=== PATIENT | male | born 1960 | race Caucasian/White ===

== ENCOUNTER 2017-04-21 16:36 | Inpatient (IN) | payer MEDICAID ==
[~2017-04-21] VITALS: Ht 170.2 cm; Wt 103.0 kg
[~2017-04-21 16:36] MED LIST: FOLI-49 PO; Lactulose PO; RIFA200T3 PO
[2017-04-21] MEDS ORDERED: ONDANSETRON 4 MG INJ IV STA (17:12)
[2017-04-21] MEDS ORDERED: morphine 4 MG/ML VIAL IV STA (17:12)
[2017-04-21 17:44] LABS: BASOPHILS % 0.3 % (0.0-2.0); EOSINOPHILS # 0.1 10^3/ul (0.0-0.5); EOSINOPHILS % 1.2 % (0.0-7.0); HEMATOCRIT 29.4 % (42.0-52.0); HEMOGLOBIN 9.4 g/dl (14.0-18.0); LYMPHOCYTES # 1.2 10^3/ul (0.8-2.9); LYMPHOCYTES % 9.8 % (15.0-51.0); MEAN CORPUSCULAR HEMOGLOBIN 35.7 pg (29.0-33.0); MEAN CORPUSCULAR VOLUME 111.8 fl (82.0-101.0); MEAN PLATELET VOLUME 10.3 fl (7.4-10.4); MONOCYTE # 1.1 10^3/ul (0.3-0.9); MONOCYTES % 9.1 % (0.0-11.0); NEUTROPHIL # 9.4 10^3/ul (1.6-7.5); NEUTROPHILS % 79.2 % (39.0-77.0); PLATELET COUNT 213 10^3/UL (140-415); RED BLOOD COUNT 2.63 10^6/ul (4.70-6.10); RED CELL DISTRIBUTION WIDTH 14.8 % (11.5-14.5); WHITE BLOOD COUNT 11.8 10^3/ul (4.8-10.8)
[2017-04-21 17:45] LABS: ADD SCAN DIFF NO
[2017-04-21 17:59] LABS: INR 1.27; PARTIAL THROMBOPLASTIN TIME 34.7 Sec (25.0-35.0); PT RATIO 1.3
[2017-04-21] MEDS ORDERED: ACETAMINOPHEN 325 MG TAB PO PRN ×2 (18:00→20:30)
[2017-04-21] MEDS ORDERED: ONDANSETRON 4 MG INJ IV PRN ×3 (18:00→20:30)
[2017-04-21 18:03] LABS: ALBUMIN 2.7 g/dl (3.3-4.9); ALBUMIN/GLOBULIN RATIO 0.65; CALCIUM 8.3 mg/dl (8.4-10.2); CREATININE 0.62 mg/dl (0.61-1.24); POTASSIUM 3.7 mmol/L (3.5-5.1); TOTAL PROTEIN 6.8 g/dl (6.1-8.1)
--- NOTE | 2017-04-21 18:41 | ERA ---
ER Documentation Chief Complaint Date/Time DATE: 04/21/17 TIME: 18:38 Chief Complaint abdominal pain and distention HPI Patient is a 56-year-old male with no medical problems who presents with abdominal pain and swelling. The patient has had swelling over the past 3 weeks. He said that he has never had a paracentesis before. He denies fevers. The patient said that he tried Tylenol and "takes it every time I have pain". He says that he is taking Tylenol 2 times per day but the says it is much more than this. He was drinking a half a bottle of vodka daily until he stopped drinking 3 months ago. Upon review of old medical records the patient one previous visit to the ER in 2016. His primary doctor is Dr. Martin. ROS All systems reviewed and are negative except as per history of present illness. Medications Home Meds Discontinued Scripts Folic Acid* (Folic Acid*) 1 Mg Tab, 1 MG PO DAILY for 7 Days, TAB Prov:RADYOVANI EASTMANETLANA 03/01/16 Rifaximin* (Xifaxan*) 200 Mg Tab, 200 MG PO BID for 30 Days, TAB Prov:RADYOVANI EASTMANETLANA 03/01/16 [Lactulose] 20 GM/30 ML SOLN No Conflict Check, 30 GM PO DAILY Prov:RADCHENKOYOVANIRASTA 03/01/16 Allergies Allergies: Coded Allergies: No Known Allergy (Unverified , 04/21/17) PMhx/Soc History of Surgery: No Anesthesia Reaction: No Hx Neurological Disorder: No Hx Respiratory Disorders: No Hx Cardiac Disorders: No Hx Psychiatric Problems: No Hx Miscellaneous Medical Probl: Yes (JAUNDICE 1-YEAR AGO) Hx Alcohol Use: Yes (QUIT 3-MONTHS AGO) Hx Substance Use: No Hx Tobacco Use: No Smoking Status: Never smoker FmHx Family History: diabetes Physical Exam Vitals Vital Signs Date Time Temp Pulse Resp B/P Pulse Ox O2 Delivery O2 Flow Rate FiO2 04/21/17 16:39 99.9 112 28 124/80 95 Physical Exam Const: Moderate distress secondary to pain Head: Atraumatic Eyes: Normal Conjunctiva ENT: Normal External Ears, Nose and Mouth. Neck: Full range of motion..~ No meningismus. Resp: Clear to auscultation bilaterally Cardio: Regular rate and rhythm, no murmurs Abd: Diffuse tenderness to palpation with distended abdomen and positive fluid wave Skin: No petechiae or rashes Back: No midline or flank tenderness Ext: No cyanosis, or edema Neur: Awake and alert Psych: Normal Mood and Affect Result Diagram: 04/21/17 1725 04/21/17 1725 Results 24 hrs Laboratory Tests Test 04/21/17 17:25 White Blood Count 11.810^3/ul Red Blood Count 2.6310^6/ul Hemoglobin 9.4g/dl Hematocrit 29.4% Mean Corpuscular Volume 111.8fl Mean Corpuscular Hemoglobin 35.7pg Mean Corpuscular Hemoglobin Concent 32.0g/dl Red Cell Distribution Width 14.8% Platelet Count 70624^3/UL Mean Platelet Volume 10.3fl Neutrophils % 79.2% Lymphocytes % 9.8% Monocytes % 9.1% Eosinophils % 1.2% Basophils % 0.3% Nucleated Red Blood Cells % 0.0/100WBC Neutrophils # 9.410^3/ul Lymphocytes # 1.210^3/ul Monocytes # 1.110^3/ul Eosinophils # 0.110^3/ul Basophils # 0.010^3/ul Nucleated Red Blood Cells # 0.010^3/ul Prothrombin Time 16.0Sec Prothrombin Time Ratio 1.3 INR International Normalized Ratio 1.27 Activated Partial Thromboplast Time 34.7Sec Sodium Level 137mmol/L Potassium Level 3.7mmol/L Chloride Level 101mmol/L Carbon Dioxide Level 23mmol/L Anion Gap 17 Blood Urea Nitrogen 8mg/dl Creatinine 0.62mg/dl Glucose Level 110mg/dl Calcium Level 8.3mg/dl Total Bilirubin 1.0mg/dl Direct Bilirubin 0.00mg/dl Indirect Bilirubin 1.0mg/dl Aspartate Amino Transf (AST/SGOT) 126IU/L Alanine Aminotransferase (ALT/SGPT) 40IU/L Alkaline Phosphatase 254IU/L Ammonia 15umol/l Total Protein 6.8g/dl Albumin 2.7g/dl Globulin 4.10g/dl Albumin/Globulin Ratio 0.65 Lipase 77U/L Current Medications Medications (Trade) Dose Ordered Sig/Siddhartha Route PRN Reason Start Time Stop Time Status Last Admin Dose Admin Morphine Sulfate (morphine) 4 mg ONCE STAT IV 04/21/17 17:12 04/21/17 17:15 DC Ondansetron HCl (Zofran Inj) 4 mg ONCE STAT IV 04/21/17 17:12 04/21/17 17:15 DC Ondansetron HCl (Zofran Inj) 4 mg BRIDGE ORDER PRN IV NAUSEA AND/OR VOMITING 04/21/17 18:00 04/22/17 17:59 Acetaminophen (Tylenol Tab) 650 mg ER BRIDGE PRN PO MILD PAIN/FEVER 04/21/17 18:00 04/22/17 17:59 Procedures/MDM Ultrasound-guided paracentesis to be done by radiology. CT scan of the abdomen pelvis pending at this time. Patient is a 56-year-old male presents with what appears to be new onset ascites. I believe he likely has new onset cirrhosis as well. The patient will have an ultrasound-guided paracentesis and studies will be sent. The patient was found to have anemia. I have also ordered a Tylenol level which is pending at this time as the patient seems to be taking a significant amount of Tylenol per the . However his cirrhosis most likely is from alcohol abuse. The patient will be admitted to the care of Dr. Saldivar as Dr. Saldivar admitted this patient one year ago. At this point I doubt spontaneous bacterial peritonitis. Departure Diagnosis: Primary Impression: Ascites Qualified Code: R18.8 - Other ascites Additional Impression: Abdominal pain Qualified Code: R10.84 - Generalized abdominal pain Condition: KHUSHBOO Bettencourt MD Apr 21, 2017 18:41
[2017-04-21] MEDS ORDERED: LIDOCAINE 1% (MPF) 5 ML VIAL ONE (19:06)
--- NOTE | 2017-04-21 19:30 | RADRPT ---
PROCEDURE: Ultrasound-guided paracentesis CLINICAL INDICATION: Ascites TECHNIQUE: After obtaining informed consent, the pelvis was scanned using a high resolution transd ucer. An area of fluid was marked for paracentesis. 1% lidocaine was used for subcutaneous anesthesia. A 5-Grenadian 7 cm catheter was used to remove 6.8 liters of clear yellow fluid from the abdomen. The patient tolerated the procedure well. COMPARISON: February 28, 2016 FINDINGS: Successful right lower quadrant ultrasound-guided paracentesis. A total of 6.8 liters of clear yell ow fluid was removed. IMPRESSION: Successful right lower quadrant ultrasound-guided paracentesis. 6.8 liters of clear yellow fluid wa s removed, and sent to the lab. RPTAT: EE .Diana Hickman MD, Date Time Electronically viewed and signed by .Diana Hickman MD, on 04/21/2017 19:30 .F/
[2017-04-21 19:32] LABS: ACETAMINOPHEN < 10.0 ug/ml (10.0-30.0)
[2017-04-21 19:40] VITALS: TEMP 98.1
[2017-04-21 19:52] LABS: ETHANOL < 10.0 mg/dl
[2017-04-21 20:04] VITALS: Ht 170.2 cm; Wt 103.0 kg
[2017-04-21] MEDS ORDERED: FUROSEMIDE 40 MG INJ IV ONE (20:30)
--- NOTE | 2017-04-21 20:32 | RADRPT ---
PROCEDURE: CT abdomen and pelvis without intravenous contrast. CLINICAL INDICATION: Pain. TECHNIQUE: CT of the abdomen/pelvis was performed utilizing axial images with reconstructions in s agittal and coronal planes. The administered radiation dose is CTDI 21 mGy, DLP 1532 mGy-cm. COMPARISON: 02/22/2016 FINDINGS: Visualized Chest: There is moderate cardiomegaly. Abdomen: The spleen, pancreas, gallbladder,and adrenal glands are unremarkable. The liver has nodular cont ours compatible with cirrhosis. There is mild splenomegaly. Mild intra-abdominal ascites is noted. There are likely some upper abdominal varices as well. The kidneys are without hydronephrosis. No definite urinary calculi are seen. There is no evidence of bowel obstruction. The appendix is normal. No intra-abdominal free air is seen. There is no evidence of intra-abdominal adenopathy. Some scattered calcifications are noted in the intra-abdominal aorta. Pelvis: There are moderate left and small right fat containing inguinal hernias. Some ascites is also noted within the left inguinal hernia. There is no evidence of pelvic adenopathy or free fluid. The prostate and bladder are unremarkable. Osseous structures: Unremarkable. IMPRESSION: Cirrhotic liver with associated splenomegaly, ascites and likely some upper abdominal varices. Left greater than right inguinal hernias. RPTAT: HIKT .Jorden Beatty MD, MD Date Time Electronically viewed and signed by .Jorden Beatty MD, on 04/21/2017 20:32 .T/
--- NOTE | 2017-04-21 20:34 | CONS ---
Date/Time of Note Date/Time of Note DATE: 04/21/17 TIME: 20:25 Assessment/Plan Assessment/Plan Chief Complaint/Hosp Course Impression: 1. macrocytic anemia 2. likely new dx of cirrhosis, likely secondary to EtOH but need to r/o viral hepatitis 3. ascites, r/o SBP Recommendations: 1. EGD offered to patient but pt declined any procedures citing he has no insurance 2. stool for occult blood 3. thiamine and folic acid 4. transfuse PRN hgb < 8 5. protonix 40 mg po bid Problems: Consultation Date/Type/Reason Admit Date/Time Apr 21, 2017 at 17:52 Date of Consultation: Apr 21, 2017 Type of Consultation: GI Reason for Consultation new onset cirrhosis, anemia r/o gib Hx of Present Illness 56-year-old male who is admitted for new onset cirrhosis. He reports abdominal pain and swelling. The patient has had swelling over the past 3 weeks. He said that he has never had a paracentesis before. He denies fevers. The patient said that he tried Tylenol and "takes it every time I have pain". He says that he is taking Tylenol 2 times per day but the says it is much more than this. He was drinking a half a bottle of vodka daily until he stopped drinking 3 months ago. No f, c, cp, sob, brbpr. He reports black stool. He occasionally takes NSAIDS. all point ros administered pertinent positives and negatives in HPI otherwise negative. Past Medical History Medical History: hepatitis Past Surgical History Past Surgical Hx: no surgical history Family History Significant Family History: no pertinent family hx Social History Alcohol Use: sober Smoking Status: Never smoker Drug Use: none Exam/Review of Systems Vital Signs Vitals Vital Signs Date Time Temp Pulse Resp B/P Pulse Ox O2 Delivery O2 Flow Rate FiO2 04/21/17 19:40 98.1 77 20 122/77 95 Exam Constitutional: alert, oriented, well developed Psych: nl mood/affect, no complaints Head: atraumatic, normocephalic Eyes: EOMI, nl conjunctiva, nl lids, nl sclera ENMT: mucosa pink and moist, nl external ears & nose, nl lips & teeth, nl nasal mucosa & septum Neck: non-tender, supple Respiratory: clear to auscultation, normal air movement Cardiovascular: nl pulses, regular rate and rhythm Gastrointestinal: bowel sounds, non-tender, soft Neurological: nl mental status, nl speech, nl strength Results Result Diagram: 04/21/17 1725 04/21/17 1725 Results 24 hrs Laboratory Tests Test 04/21/17 17:25 White Blood Count 11.8 H Red Blood Count 2.63 L Hemoglobin 9.4 L Hematocrit 29.4 L Mean Corpuscular Volume 111.8 H Mean Corpuscular Hemoglobin 35.7 H Mean Corpuscular Hemoglobin Concent 32.0 Red Cell Distribution Width 14.8 #H Platelet Count 213 Mean Platelet Volume 10.3 # Neutrophils % 79.2 H Lymphocytes % 9.8 L Monocytes % 9.1 Eosinophils % 1.2 Basophils % 0.3 Nucleated Red Blood Cells % 0.0 Neutrophils # 9.4 H Lymphocytes # 1.2 Monocytes # 1.1 H Eosinophils # 0.1 Basophils # 0.0 Nucleated Red Blood Cells # 0.0 Prothrombin Time 16.0 H Prothrombin Time Ratio 1.3 INR International Normalized Ratio 1.27 Activated Partial Thromboplast Time 34.7 Sodium Level 137 Potassium Level 3.7 Chloride Level 101 Carbon Dioxide Level 23 Anion Gap 17 H Blood Urea Nitrogen 8 Creatinine 0.62 Glucose Level 110 Calcium Level 8.3 L Total Bilirubin 1.0 Direct Bilirubin 0.00 Indirect Bilirubin 1.0 Aspartate Amino Transf (AST/SGOT) 126 H Alanine Aminotransferase (ALT/SGPT) 40 Alkaline Phosphatase 254 H Ammonia 15 Total Protein 6.8 Albumin 2.7 L Globulin 4.10 H Albumin/Globulin Ratio 0.65 Lipase 77 Acetaminophen Level < 10.0 L Ethyl Alcohol Level < 10.0 Medications Medications Current Medications Ondansetron HCl (Zofran Inj) 4 mg Q6H PRN IV NAUSEA AND/OR VOMITING; Start 04/21 at 20:00 Furosemide (Lasix) 40 mg ONCE ONCE IV ; Start 04/21/17 at 20:30; Stop 04/21/17 at 20:31; Status UNV Furosemide (Lasix) 40 mg DAILY IV ; Start 04/22/17 at 09:00; Status UNV Pantoprazole (Protonix Iv) 40 mg DAILY@06 IV ; Start 04/22/17 at 06:00; Status UNV Ondansetron HCl (Zofran Inj) 4 mg Q6H PRN IV NAUSEA AND/OR VOMITING; Start 04/21 at 20:30; Status UNV Acetaminophen (Tylenol Tab) 650 mg Q6H PRN PO PAIN AND OR ELEVATED TEMP; Start 04/21/17 at 20:30; Status UNV EPI SCHMITZ MD Apr 21, 2017 20:34
[2017-04-21 20:50] VITALS: BP 140/64; RESP 18
[2017-04-21] MEDS: FOLIC ACID 1 MG TAB PO SCH (21:31)
[2017-04-21] MEDS: THIAMINE 100 MG TAB PO SCH (21:31)
[2017-04-21] MEDS: CEFTRIAXONE 1 GM/50 ML (PMX) 50 ML IVPB SCH (22:52)
[2017-04-21] MEDS: SPIRONOLACTONE 50 MG TAB PO SCH (22:52)
[2017-04-21 23:24] LABS: FLUID GLUCOSE 100 mg/dl; FLUID TYPE PARACENTESIS FLUID
[2017-04-21 23:25] LABS: FLUID AMYLASE < 30 U/L; FLUID TYPE PARACENTESIS FLUID
[2017-04-21 23:26] LABS: FLUID TOTAL PROTEIN < 2.0 g/dl
[2017-04-21 23:31] LABS: FLUID APPEARANCE CLOUDY; FLUID RBC EST 0; FLUID TYPE PARACENTHESIS; FLUID WBC'S 111 /cmm
[2017-04-22 00:42] LABS: FLUID LYMPHOCYTES 22 %; FLUID MONOCYTES 50 %; FLUID NEUTROPHILS 24 %
[2017-04-22 05:42] LABS: HAAIG REFLEX REFLEX FILED
[2017-04-22 05:52] LABS: BASOPHILS % 0.4 % (0.0-2.0); EOSINOPHILS # 0.3 10^3/ul (0.0-0.5); EOSINOPHILS % 2.8 % (0.0-7.0); HEMATOCRIT 26.2 % (42.0-52.0); HEMOGLOBIN 8.5 g/dl (14.0-18.0); LYMPHOCYTES # 1.4 10^3/ul (0.8-2.9); LYMPHOCYTES % 14.3 % (15.0-51.0); MEAN CORPUSCULAR HGB CONC 32.4 g/dl (32.0-37.0); MEAN PLATELET VOLUME 10.7 fl (7.4-10.4); MONOCYTE # 1.1 10^3/ul (0.3-0.9); MONOCYTES % 11.2 % (0.0-11.0); NEUTROPHIL # 6.9 10^3/ul (1.6-7.5); NEUTROPHILS % 70.7 % (39.0-77.0); PLATELET COUNT 181 10^3/UL (140-415); RED BLOOD COUNT 2.36 10^6/ul (4.70-6.10); RED CELL DISTRIBUTION WIDTH 14.7 % (11.5-14.5); WHITE BLOOD COUNT 9.7 10^3/ul (4.8-10.8)
[2017-04-22 05:58] LABS: CALCIUM 7.8 mg/dl (8.4-10.2); CREATININE 0.64 mg/dl (0.61-1.24); POTASSIUM 3.1 mmol/L (3.5-5.1)
[2017-04-22] MEDS ORDERED: PANTOPRAZOLE 40 MG INJ IV SCH (06:00)
[2017-04-22] MEDS: PANTOPRAZOLE (EC) 40 MG TAB PO SCH ×2 (06:04→17:41)
[2017-04-22] MEDS: FUROSEMIDE 40 MG INJ IV SCH (06:04)
[2017-04-22 06:51] LABS: HEPATITIS B CORE ANTIBODY NEGATIVE (NEGATIVE)
[2017-04-22 07:13] LABS: ADD SCAN DIFF NO
[2017-04-22 08:17] VITALS: BP 101/58; RESP 18
[2017-04-22] MEDS: SPIRONOLACTONE 50 MG TAB PO SCH (08:53)
[2017-04-22] MEDS: FOLIC ACID 1 MG TAB PO SCH (08:53)
[2017-04-22] MEDS: THIAMINE 100 MG TAB PO SCH (08:53)
--- NOTE | 2017-04-22 11:14 | CONS ---
Date/Time of Note Date/Time of Note DATE: 04/22/17 TIME: 11:14 Consultation Date/Type/Reason Admit Date/Time Apr 21, 2017 at 17:52 Psychological: nl mood/affect, no complaints Past Medical History Medical History: hepatitis Past Surgical History Past Surgical Hx: no surgical history Social History Alcohol Use: sober Smoking Status: Never smoker Drug Use: none Exam/Review of Systems Vital Signs Vitals Vital Signs Date Time Temp Pulse Resp B/P Pulse Ox O2 Delivery O2 Flow Rate FiO2 04/21/17 20:50 97.4 93 18 140/64 98 Intake and Output 04/21/17 04/21/17 04/22/17 15:00 23:00 07:00 Intake Total 350 ml Balance 350 ml Results Result Diagram: 04/22/17 0455 04/22/17 0455 Results 24 hrs Laboratory Tests Test 04/21/17 17:25 04/21/17 19:00 04/21/17 21:20 04/22/17 04:55 White Blood Count 11.8 H 9.7 Red Blood Count 2.63 L 2.36 L Hemoglobin 9.4 L 8.5 L Hematocrit 29.4 L 26.2 L Mean Corpuscular Volume 111.8 H 111.0 H Mean Corpuscular Hemoglobin 35.7 H 36.0 H Mean Corpuscular Hemoglobin Concent 32.0 32.4 Red Cell Distribution Width 14.8 #H 14.7 H Platelet Count 213 181 Mean Platelet Volume 10.3 # 10.7 H Neutrophils % 79.2 H 70.7 Lymphocytes % 9.8 L 14.3 L Monocytes % 9.1 11.2 H Eosinophils % 1.2 2.8 Basophils % 0.3 0.4 Nucleated Red Blood Cells % 0.0 0.0 Neutrophils # 9.4 H 6.9 Lymphocytes # 1.2 1.4 Monocytes # 1.1 H 1.1 H Eosinophils # 0.1 0.3 Basophils # 0.0 0.0 Nucleated Red Blood Cells # 0.0 0.0 Prothrombin Time 16.0 H Prothrombin Time Ratio 1.3 INR International Normalized Ratio 1.27 Activated Partial Thromboplast Time 34.7 Sodium Level 137 139 Potassium Level 3.7 3.1 L Chloride Level 101 103 Carbon Dioxide Level 23 25 Anion Gap 17 H 14 Blood Urea Nitrogen 8 8 Creatinine 0.62 0.64 Glucose Level 110 91 Calcium Level 8.3 L 7.8 L Total Bilirubin 1.0 Direct Bilirubin 0.00 Indirect Bilirubin 1.0 Aspartate Amino Transf (AST/SGOT) 126 H Alanine Aminotransferase (ALT/SGPT) 40 Alkaline Phosphatase 254 H Ammonia 15 Total Protein 6.8 Albumin 2.7 L Globulin 4.10 H Albumin/Globulin Ratio 0.65 Lipase 77 Acetaminophen Level < 10.0 L Ethyl Alcohol Level < 10.0 Body Fluid Type PARACENTHESIS Body Fluid Volume 1100.0 Body Fluid Color YELLOW Body Fluid Appearance CLOUDY Body Fluid WBC 111 Body Fluid RBC 0 Body Fluid Neutrophils % 24 Body Fluid Lymphocytes (%) 22 Body Fluid Monocytes % 50 Body Fluid Other Cells (%) 4 Body Fluid Glucose 100 Body Fluid Total Protein < 2.0 Body Fluid Lactate Dehydrogenase Body Fluid Amylase < 30 Stool Occult Blood NEGATIVE Hepatitis B Surface Antigen NEGATIVE Hepatitis B Core Total Antibody NEGATIVE Hepatitis C Antibody NEGATIVE Medications Medications Current Medications Ondansetron HCl (Zofran Inj) 4 mg Q6H PRN IV NAUSEA AND/OR VOMITING; Start 04/21 at 20:00 Furosemide (Lasix) 40 mg DAILY@06 IV Last administered on 04/22/17 06:04; Admin Dose 40 MG; Start 04/22/17 at 06:00 Ondansetron HCl (Zofran Inj) 4 mg Q6H PRN IV NAUSEA AND/OR VOMITING; Start 04/21 at 20:30 Acetaminophen (Tylenol Tab) 650 mg Q6H PRN PO PAIN AND OR ELEVATED TEMP; Start 04/21/17 at 20:30 Thiamine HCl (Vitamin B1) 100 mg DAILY PO Last administered on 04/22/17 08:53; Admin Dose 100 MG; Start 04/21/17 at 20:30; Stop 04/24/17 at 20:29 Folic Acid (Folic Acid) 1 mg DAILY PO Last administered on 04/22/17 08:53; Admin Dose 1 MG; Start 04/21/17 at 20:30 Pantoprazole (Protonix Tab) 40 mg BID@06,18 PO Last administered on 04/22/17 06 :04; Admin Dose 40 MG; Start 04/22/17 at 06:00 Spironolactone 50 mg 50 mg DAILY PO Last administered on 04/22/17 08:53; Admin Dose 50 MG; Start 04/21/17 at 21:00 Ceftriaxone Sodium (Rocephin) 50 ml @ 100 mls/hr Q24H IVPB Last administered on 04/21/17t 22:52; Admin Dose 100 MLS/HR; Start 04/21/17 at 20:30 RODGER JOHNSON MD Apr 22, 2017 11:14
--- NOTE | 2017-04-22 11:44 | CONS ---
Date/Time of Note Date/Time of Note DATE: 04/22/17 TIME: 11:25 Assessment/Plan Assessment/Plan Chief Complaint/Hosp Course 1. SIRS vs. Sepsis 2. Ascites 3. Cirrhosis 4. 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 ctx for now 2. hutton cx 3. HIV screen Problems: Consultation Date/Type/Reason Admit Date/Time Apr 21, 2017 at 17:52 Date of Consultation: Apr 22, 2017 Type of Consultation: ID Reason for Consultation ABX Hx of Present Illness 56 yo male with no chornic medical problems admitted through ER with with new ascites. He apparently has alcohol abuse and tylenol usage. He is s/p paracentesis. cxs have been negative. He is currently on CTX Psychological: nl mood/affect, no complaints Past Medical History Medical History: hepatitis Past Surgical History Past Surgical Hx: no surgical history Social History Alcohol Use: sober Smoking Status: Never smoker Drug Use: none Exam/Review of Systems Vital Signs Vitals Vital Signs Date Time Temp Pulse Resp B/P Pulse Ox O2 Delivery O2 Flow Rate FiO2 04/21/17 20:50 97.4 93 18 140/64 98 Intake and Output 04/21/17 04/21/17 04/22/17 15:00 23:00 07:00 Intake Total 350 ml Balance 350 ml Results Result Diagram: 04/22/17 0455 04/22/17 0455 Results 24 hrs Laboratory Tests Test 04/21/17 17:25 04/21/17 19:00 04/21/17 21:20 04/22/17 04:55 White Blood Count 11.8 H 9.7 Red Blood Count 2.63 L 2.36 L Hemoglobin 9.4 L 8.5 L Hematocrit 29.4 L 26.2 L Mean Corpuscular Volume 111.8 H 111.0 H Mean Corpuscular Hemoglobin 35.7 H 36.0 H Mean Corpuscular Hemoglobin Concent 32.0 32.4 Red Cell Distribution Width 14.8 #H 14.7 H Platelet Count 213 181 Mean Platelet Volume 10.3 # 10.7 H Neutrophils % 79.2 H 70.7 Lymphocytes % 9.8 L 14.3 L Monocytes % 9.1 11.2 H Eosinophils % 1.2 2.8 Basophils % 0.3 0.4 Nucleated Red Blood Cells % 0.0 0.0 Neutrophils # 9.4 H 6.9 Lymphocytes # 1.2 1.4 Monocytes # 1.1 H 1.1 H Eosinophils # 0.1 0.3 Basophils # 0.0 0.0 Nucleated Red Blood Cells # 0.0 0.0 Prothrombin Time 16.0 H Prothrombin Time Ratio 1.3 INR International Normalized Ratio 1.27 Activated Partial Thromboplast Time 34.7 Sodium Level 137 139 Potassium Level 3.7 3.1 L Chloride Level 101 103 Carbon Dioxide Level 23 25 Anion Gap 17 H 14 Blood Urea Nitrogen 8 8 Creatinine 0.62 0.64 Glucose Level 110 91 Calcium Level 8.3 L 7.8 L Total Bilirubin 1.0 Direct Bilirubin 0.00 Indirect Bilirubin 1.0 Aspartate Amino Transf (AST/SGOT) 126 H Alanine Aminotransferase (ALT/SGPT) 40 Alkaline Phosphatase 254 H Ammonia 15 Total Protein 6.8 Albumin 2.7 L Globulin 4.10 H Albumin/Globulin Ratio 0.65 Lipase 77 Acetaminophen Level < 10.0 L Ethyl Alcohol Level < 10.0 Body Fluid Type PARACENTHESIS Body Fluid Volume 1100.0 Body Fluid Color YELLOW Body Fluid Appearance CLOUDY Body Fluid WBC 111 Body Fluid RBC 0 Body Fluid Neutrophils % 24 Body Fluid Lymphocytes (%) 22 Body Fluid Monocytes % 50 Body Fluid Other Cells (%) 4 Body Fluid Glucose 100 Body Fluid Total Protein < 2.0 Body Fluid Lactate Dehydrogenase Body Fluid Amylase < 30 Stool Occult Blood NEGATIVE Hepatitis B Surface Antigen NEGATIVE Hepatitis B Core Total Antibody NEGATIVE Hepatitis C Antibody NEGATIVE Medications Medications Current Medications Ondansetron HCl (Zofran Inj) 4 mg Q6H PRN IV NAUSEA AND/OR VOMITING; Start 04/21 at 20:00 Furosemide (Lasix) 40 mg DAILY@06 IV Last administered on 04/22/17 06:04; Admin Dose 40 MG; Start 04/22/17 at 06:00 Ondansetron HCl (Zofran Inj) 4 mg Q6H PRN IV NAUSEA AND/OR VOMITING; Start 04/21 at 20:30 Acetaminophen (Tylenol Tab) 650 mg Q6H PRN PO PAIN AND OR ELEVATED TEMP; Start 04/21/17 at 20:30 Thiamine HCl (Vitamin B1) 100 mg DAILY PO Last administered on 04/22/17 08:53; Admin Dose 100 MG; Start 04/21/17 at 20:30; Stop 04/24/17 at 20:29 Folic Acid (Folic Acid) 1 mg DAILY PO Last administered on 04/22/17 08:53; Admin Dose 1 MG; Start 04/21/17 at 20:30 Pantoprazole (Protonix Tab) 40 mg BID@06,18 PO Last administered on 04/22/17 06 :04; Admin Dose 40 MG; Start 04/22/17 at 06:00 Spironolactone 50 mg 50 mg DAILY PO Last administered on 04/22/17 08:53; Admin Dose 50 MG; Start 04/21/17 at 21:00 Ceftriaxone Sodium (Rocephin) 50 ml @ 100 mls/hr Q24H IVPB Last administered on 04/21/17 22:52; Admin Dose 100 MLS/HR; Start 04/21/17 at 20:30 RODGER JOHNSON MD Apr 22, 2017 11:44
--- NOTE | 2017-04-22 12:14 | HP ---
Date/Time of Note Date/Time of Note DATE: 04/22/17 TIME: 11:51 Assessment/Plan Assessment/Plan Assessment/Plan - Abdominal pain - Admit to hospital- med surg - Gi CONSULT- Dr Pleitez notified - covering for Dr Cervantes - clear liquid diet - IVF - Zofran, Tylenol. Protonix -Ascites - sp Paracentesis - will send fluid for culture, differentia. total cell cout, cytology, glucose, albumin, gm stain - Leukocytosis - ID Consult- Dr Moya notified - started on Rocephin - am labs - cont to monitor - Hx Jaundice - SCD, PROTONIX Dw Dr Casey/staff/patient HPI/ROS Admit Date/Time Admit Date/Time Apr 21, 2017 at 17:52 Hx of Present Illness late charting 04/21/2017 at 2100 Chief Complaint abdominal pain and distention HPI Patient is a 56-year-old male with no medical problems is admitted with c/o abdominal pain and swelling from past 3 weeks. Per patient he never had any paracentesis before. Today, patient had paracentesis and 6.8 L fluid removed.He denies any SOB, fevers, abdominal pain. nausea/vomitting/diarrhea The patient said that he tried taking Tylenol 2 times per day but ineffective. He was drinking a half a bottle of vodka daily until he stopped drinking 3 months ago. His primary doctor is Dr. Martin. Patient is admitted under Dr Saldivar for further evaluation and treatment. ROS Respiratory: no complaints Gastrointestinal: no complaints Genitourinary: no complaints Musculoskeletal: no complaints Psychological: nl mood/affect, no complaints PMH/Family/Social Past Medical History PMhx/Soc History of Surgery: No Anesthesia Reaction: No Hx Neurological Disorder: No Hx Respiratory Disorders: No Hx Cardiac Disorders: No Hx Psychiatric Problems: No Hx Miscellaneous Medical Probl: Yes (JAUNDICE 1-YEAR AGO) Hx Alcohol Use: Yes (QUIT 3-MONTHS AGO) Hx Substance Use: No Hx Tobacco Use: No Smoking Status: Never smoker FmHx Family History: diabetes Medical History: hepatitis Past Surgical History Past Surgical Hx: no surgical history Social History Alcohol Use: sober Smoking Status: Never smoker Drug Use: none Exam/Review of Systems Vital Signs Vitals Vital Signs Date Time Temp Pulse Resp B/P Pulse Ox O2 Delivery O2 Flow Rate FiO2 04/21/17 20:50 97.4 93 18 140/64 98 Intake and Output 04/21/17 04/21/17 04/22/17 15:00 23:00 07:00 Intake Total 350 ml Balance 350 ml Exam Constitutional: alert, oriented, well developed Respiratory: clear to auscultation, normal air movement Cardiovascular: nl pulses, regular rate and rhythm Gastrointestinal: soft, tender (diffuse tenderness on palpitation ) Musculoskeletal: nl extremities to inspection Neurological: nl mental status, nl speech Lymph: nontender Labs Result Diagram: 04/22/175 04/22/175 Medications Medications Current Medications Ondansetron HCl (Zofran Inj) 4 mg Q6H PRN IV NAUSEA AND/OR VOMITING; Start 04/21 at 20:00 Furosemide (Lasix) 40 mg DAILY@06 IV Last administered on 04/22/17 06:04; Admin Dose 40 MG; Start 04/22/17 at 06:00 Ondansetron HCl (Zofran Inj) 4 mg Q6H PRN IV NAUSEA AND/OR VOMITING; Start 04/21 at 20:30 Acetaminophen (Tylenol Tab) 650 mg Q6H PRN PO PAIN AND OR ELEVATED TEMP; Start 04/21/17 at 20:30 Thiamine HCl (Vitamin B1) 100 mg DAILY PO Last administered on 04/22/17 08:53; Admin Dose 100 MG; Start 04/21/17 at 20:30; Stop 04/24/17 at 20:29 Folic Acid (Folic Acid) 1 mg DAILY PO Last administered on 04/22/17 08:53; Admin Dose 1 MG; Start 04/21/17 at 20:30 Pantoprazole (Protonix Tab) 40 mg BID@06,18 PO Last administered on 04/22/17 06 :04; Admin Dose 40 MG; Start 04/22/17 at 06:00 Spironolactone 50 mg 50 mg DAILY PO Last administered on 04/22/17 08:53; Admin Dose 50 MG; Start 04/21/17 at 21:00 Ceftriaxone Sodium (Rocephin) 50 ml @ 100 mls/hr Q24H IVPB Last administered on 04/21/17 22:52; Admin Dose 100 MLS/HR; Start 04/21/17 at 20:30 SONIA FIGUEROA Apr 22, 2017 12:01
[2017-04-22 15:55] LABS: ADD UMIC NO; UR ASCORBIC ACID NEGATIVE (NEGATIVE); UR BILIRUBIN (Dip) NEGATIVE (NEGATIVE); UR BLOOD (Dip) NEGATIVE (NEGATIVE); UR CLARITY CLEAR (CLEAR); UR COLOR YELLOW (YELLOW); UR GLUCOSE (Dip) NEGATIVE (NEGATIVE); UR KETONES (Dip) NEGATIVE (NEGATIVE); UR LEUKOCYTE ESTERASE (Dip) NEGATIVE Leu/ul (NEGATIVE); UR NITRITE (Dip) NEGATIVE (NEGATIVE); UR SPECIFIC GRAVITY (Dip) 1.006 (1.003-1.030); UR TOTAL PROTEIN (Dip) NEGATIVE (NEGATIVE); UR UROBILINOGEN (Dip) NEGATIVE (NEGATIVE)
--- NOTE | 2017-04-22 15:55 | CONS ---
Date/Time of Note Date/Time of Note DATE: 04/22/17 TIME: 15:52 Assessment/Plan Assessment/Plan Chief Complaint/Hosp Course Impression: 1. macrocytic anemia: occult blood negative. 2. likely new dx of cirrhosis, likely secondary to EtOH but need to r/o viral hepatitis 3. ascites, no SBP on ascites cell count. 4. Recommendations: 1. EGD offered to patient but pt declined any procedures citing he has no insurance 2. protonix 40 mg po bid 3. thiamine and folic acid 4. transfuse PRN hgb < 8 5. diuretics with aldactone and lasix for his ascites. 6. ok from GI perspective to dc if ok with primary and other consultants. Problems: Consultation Date/Type/Reason Admit Date/Time Apr 21, 2017 at 17:52 Initial Consult Date 04/22/17 Type of Consultation: GI 24 HR Interval Summary Free Text/Dictation abd less distended after paracentesis, no n/v Exam/Review of Systems Vital Signs Vitals Vital Signs Date Time Temp Pulse Resp B/P Pulse Ox O2 Delivery O2 Flow Rate FiO2 04/22/17 08:17 97.8 97 18 101/58 99 Intake and Output 04/21/17 04/21/17 04/22/17 15:00 23:00 07:00 Intake Total 350 ml Balance 350 ml Exam Constitutional: alert, oriented, well developed Psych: nl mood/affect, no complaints Head: atraumatic, normocephalic Eyes: EOMI, nl conjunctiva, nl lids, nl sclera ENMT: mucosa pink and moist, nl external ears & nose, nl lips & teeth, nl nasal mucosa & septum Neck: non-tender, supple Respiratory: clear to auscultation, normal air movement Cardiovascular: nl pulses, regular rate and rhythm Gastrointestinal: bowel sounds, distended, soft Results Result Diagram: 04/22/17 0455 04/22/17 0455 Results 24 hrs Laboratory Tests Test 04/21/17 17:25 04/21/17 19:00 04/21/17 21:20 04/22/17 04:55 White Blood Count 11.8 H 9.7 Red Blood Count 2.63 L 2.36 L Hemoglobin 9.4 L 8.5 L Hematocrit 29.4 L 26.2 L Mean Corpuscular Volume 111.8 H 111.0 H Mean Corpuscular Hemoglobin 35.7 H 36.0 H Mean Corpuscular Hemoglobin Concent 32.0 32.4 Red Cell Distribution Width 14.8 #H 14.7 H Platelet Count 213 181 Mean Platelet Volume 10.3 # 10.7 H Neutrophils % 79.2 H 70.7 Lymphocytes % 9.8 L 14.3 L Monocytes % 9.1 11.2 H Eosinophils % 1.2 2.8 Basophils % 0.3 0.4 Nucleated Red Blood Cells % 0.0 0.0 Neutrophils # 9.4 H 6.9 Lymphocytes # 1.2 1.4 Monocytes # 1.1 H 1.1 H Eosinophils # 0.1 0.3 Basophils # 0.0 0.0 Nucleated Red Blood Cells # 0.0 0.0 Prothrombin Time 16.0 H Prothrombin Time Ratio 1.3 INR International Normalized Ratio 1.27 Activated Partial Thromboplast Time 34.7 Sodium Level 137 139 Potassium Level 3.7 3.1 L Chloride Level 101 103 Carbon Dioxide Level 23 25 Anion Gap 17 H 14 Blood Urea Nitrogen 8 8 Creatinine 0.62 0.64 Glucose Level 110 91 Calcium Level 8.3 L 7.8 L Total Bilirubin 1.0 Direct Bilirubin 0.00 Indirect Bilirubin 1.0 Aspartate Amino Transf (AST/SGOT) 126 H Alanine Aminotransferase (ALT/SGPT) 40 Alkaline Phosphatase 254 H Ammonia 15 Total Protein 6.8 Albumin 2.7 L Globulin 4.10 H Albumin/Globulin Ratio 0.65 Lipase 77 Acetaminophen Level < 10.0 L Ethyl Alcohol Level < 10.0 Body Fluid Type PARACENTHESIS Body Fluid Volume 1100.0 Body Fluid Color YELLOW Body Fluid Appearance CLOUDY Body Fluid WBC 111 Body Fluid RBC 0 Body Fluid Neutrophils % 24 Body Fluid Lymphocytes (%) 22 Body Fluid Monocytes % 50 Body Fluid Other Cells (%) 4 Body Fluid Glucose 100 Body Fluid Total Protein < 2.0 Body Fluid Lactate Dehydrogenase Body Fluid Amylase < 30 Stool Occult Blood NEGATIVE Hepatitis B Surface Antigen NEGATIVE Hepatitis B Core Total Antibody NEGATIVE Hepatitis C Antibody NEGATIVE Test 04/22/17 12:00 Erythrocyte Sedimentation Rate 82 H Lactic Acid Level 1.9 HIV (1&2) Antibody NEGATIVE Medications Medications Current Medications Ondansetron HCl (Zofran Inj) 4 mg Q6H PRN IV NAUSEA AND/OR VOMITING; Start 04/21 at 20:00 Furosemide (Lasix) 40 mg DAILY@06 IV Last administered on 04/22/17 06:04; Admin Dose 40 MG; Start 04/22/17 at 06:00 Ondansetron HCl (Zofran Inj) 4 mg Q6H PRN IV NAUSEA AND/OR VOMITING; Start 04/21 at 20:30 Acetaminophen (Tylenol Tab) 650 mg Q6H PRN PO PAIN AND OR ELEVATED TEMP; Start 04/21/17 at 20:30 Thiamine HCl (Vitamin B1) 100 mg DAILY PO Last administered on 04/22/17 08:53; Admin Dose 100 MG; Start 04/21/17 at 20:30; Stop 04/24/17 at 20:29 Folic Acid (Folic Acid) 1 mg DAILY PO Last administered on 04/22/17 08:53; Admin Dose 1 MG; Start 04/21/17 at 20:30 Pantoprazole (Protonix Tab) 40 mg BID@06,18 PO Last administered on 04/22/17 06 :04; Admin Dose 40 MG; Start 04/22/17 at 06:00 Spironolactone 50 mg 50 mg DAILY PO Last administered on 04/22/17 08:53; Admin Dose 50 MG; Start 04/21/17 at 21:00 Ceftriaxone Sodium (Rocephin) 50 ml @ 100 mls/hr Q24H IVPB Last administered on 04/21/17 22:52; Admin Dose 100 MLS/HR; Start 04/21/17 at 20:30 EPI SCHMITZ MD Apr 22, 2017 15:55
[2017-04-22] MEDS ORDERED: POTASSIUM CHLORIDE (SR) 10 MEQ TAB PO ONE (20:00)
[2017-04-22 20:17] VITALS: BP 102/59; RESP 19
[2017-04-22] MEDS ORDERED: POTASSIUM CHLORIDE (SR) 20 MEQ TAB PO SCH (20:30)
[2017-04-22] MEDS: CEFTRIAXONE 1 GM/50 ML (PMX) 50 ML IVPB SCH (21:04)
[2017-04-23] MEDS: PANTOPRAZOLE (EC) 40 MG TAB PO SCH ×2 (05:49→18:28)
[2017-04-23] MEDS: FUROSEMIDE 40 MG INJ IV SCH (05:50)
[2017-04-23 05:54] VITALS: BP 104/64; PULSE 95
[2017-04-23 06:13] LABS: BASOPHIL # 0.1 10^3/ul (0.0-0.1); BASOPHILS % 0.6 % (0.0-2.0); EOSINOPHILS # 0.3 10^3/ul (0.0-0.5); EOSINOPHILS % 2.8 % (0.0-7.0); HEMOGLOBIN 9.7 g/dl (14.0-18.0); LYMPHOCYTES # 1.6 10^3/ul (0.8-2.9); MEAN CORPUSCULAR HEMOGLOBIN 36.2 pg (29.0-33.0); MEAN CORPUSCULAR HGB CONC 32.3 g/dl (32.0-37.0); MEAN CORPUSCULAR VOLUME 111.9 fl (82.0-101.0); MEAN PLATELET VOLUME 10.7 fl (7.4-10.4); MONOCYTE # 0.9 10^3/ul (0.3-0.9); MONOCYTES % 8.8 % (0.0-11.0); NEUTROPHIL # 7.2 10^3/ul (1.6-7.5); NEUTROPHILS % 71.2 % (39.0-77.0); PLATELET COUNT 197 10^3/UL (140-415); RED BLOOD COUNT 2.68 10^6/ul (4.70-6.10); RED CELL DISTRIBUTION WIDTH 14.8 % (11.5-14.5); WHITE BLOOD COUNT 10.1 10^3/ul (4.8-10.8)
[2017-04-23 06:44] LABS: CALCIUM 7.8 mg/dl (8.4-10.2); CREATININE 0.74 mg/dl (0.61-1.24); POTASSIUM 4.2 mmol/L (3.5-5.1)
[2017-04-23 08:27] VITALS: BP 109/60; RESP 20
--- NOTE | 2017-04-23 09:54 | RADRPT ---
PROCEDURE: Chest 1 views. CLINICAL INDICATION: Shortness of breath. TECHNIQUE: AP views of the chest was obtained. COMPARISON: February 23, 2016 FINDINGS: The heart is large. Elevation of the right hemidiaphragm is identified. Atelectasis is noted at the lung bases. No consolidations are identified. No pneumothorax is seen. Osseous structures are int act. IMPRESSION: Cardiomegaly . Elevation of the right hemidiaphragm. Elevation at the lung bases. RPTAT: AA .Sy Hahn MD, Date Time Electronically viewed and signed by .Sy Hahn MD, on 04/23/2017 09:54 .P/
[2017-04-23] MEDS: FOLIC ACID 1 MG TAB PO SCH (10:08)
[2017-04-23] MEDS: THIAMINE 100 MG TAB PO SCH (10:08)
[2017-04-23] MEDS: SPIRONOLACTONE 50 MG TAB PO SCH (10:08)
--- NOTE | 2017-04-23 12:16 | CONS ---
Date/Time of Note Date/Time of Note DATE: 04/23/17 TIME: 12:08 Assessment/Plan Assessment/Plan Additional Assessment/Plan 1. SIRS vs. Sepsis 2. Atelectasis is noted at the lung bases. . 3. Ascites 4. Cirrhosis 5. 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 ctx for now 2. hutton cx 3. HIV screen Consultation Date/Type/Reason Admit Date/Time Apr 21, 2017 at 17:52 Initial Consult Date 04/22/17 Type of Consultation: GI 24 HR Interval Summary Free Text/Dictation afebrile, no leukocytosis. denies any shortness of breath, abdominal pain, CXR showed- Atelectasis is noted at the lung bases. No consolidations are identified. No pneumothorax is seen. Osseous structures are intact. Blood c/s - no growth 1 day ESR 82. DW STAFF Exam/Review of Systems Vital Signs Vitals Vital Signs Date Time Temp Pulse Resp B/P Pulse Ox O2 Delivery O2 Flow Rate FiO2 04/23/17 08:27 97.7 99 20 109/60 99 Intake and Output 04/22/17 04/22/17 04/23/17 15:00 23:00 07:00 Intake Total 960 ml 300 ml Balance 960 ml 300 ml Exam Constitutional: alert, well developed Respiratory: diminished breath sounds Cardiovascular: nl pulses, regular rate and rhythm Gastrointestinal: ascites, non-tender, soft Musculoskeletal: swelling Extremities: edema (BLE edema noted) Neurological: nl mental status, nl speech Results Result Diagram: 04/23/17 0502 04/23/17 0502 Results 24 hrs Laboratory Tests Test 04/22/17 15:29 04/23/17 05:02 Urine Color YELLOW Urine Clarity CLEAR Urine pH 5.0 Urine Specific [place] 1.006 Urine Ketones NEGATIVE Urine Nitrite NEGATIVE Urine Bilirubin NEGATIVE Urine Urobilinogen NEGATIVE Urine Leukocyte Esterase NEGATIVE Urine Hemoglobin NEGATIVE Urine Glucose NEGATIVE Urine Total Protein NEGATIVE White Blood Count 10.1 Red Blood Count 2.68 L Hemoglobin 9.7 L Hematocrit 30.0 L Mean Corpuscular Volume 111.9 H Mean Corpuscular Hemoglobin 36.2 H Mean Corpuscular Hemoglobin Concent 32.3 Red Cell Distribution Width 14.8 H Platelet Count 197 Mean Platelet Volume 10.7 H Neutrophils % 71.2 Lymphocytes % 16.0 Monocytes % 8.8 Eosinophils % 2.8 Basophils % 0.6 Nucleated Red Blood Cells % 0.0 Neutrophils # 7.2 Lymphocytes # 1.6 Monocytes # 0.9 Eosinophils # 0.3 Basophils # 0.1 Nucleated Red Blood Cells # 0.0 Sodium Level 133 L Potassium Level 4.2 Chloride Level 105 Carbon Dioxide Level 25 Anion Gap 7 L Blood Urea Nitrogen 10 Creatinine 0.74 Glucose Level 92 Calcium Level 7.8 L Medications Medications Current Medications Ondansetron HCl (Zofran Inj) 4 mg Q6H PRN IV NAUSEA AND/OR VOMITING; Start 04/21 at 20:00 Furosemide (Lasix) 40 mg DAILY@06 IV Last administered on 04/23/17 05:50; Admin Dose 40 MG; Start 04/22/17 at 06:00 Ondansetron HCl (Zofran Inj) 4 mg Q6H PRN IV NAUSEA AND/OR VOMITING; Start 04/21 at 20:30 Acetaminophen (Tylenol Tab) 650 mg Q6H PRN PO PAIN AND OR ELEVATED TEMP; Start 04/21/17 at 20:30 Thiamine HCl (Vitamin B1) 100 mg DAILY PO Last administered on 04/23/17 10:08; Admin Dose 100 MG; Start 04/21/17 at 20:30; Stop 04/24/17 at 20:29 Folic Acid (Folic Acid) 1 mg DAILY PO Last administered on 04/23/17 10:08; Admin Dose 1 MG; Start 04/21/17 at 20:30 Pantoprazole (Protonix Tab) 40 mg BID@06,18 PO Last administered on 04/23/17 05 :49; Admin Dose 40 MG; Start 04/22/17 at 06:00 Spironolactone 50 mg 50 mg DAILY PO Last administered on 04/23/17 10:08; Admin Dose 50 MG; Start 04/21/17 at 21:00 Ceftriaxone Sodium (Rocephin) 50 ml @ 100 mls/hr Q24H IVPB Last administered on 04/22/17 21:04; Admin Dose 100 MLS/HR; Start 04/21/17 at 20:30 Procedures Procedures CXR; The heart is large. Elevation of the right hemidiaphragm is identified. Atelectasis is noted at the lung bases. No consolidations are identified. No pneumothorax is seen. Osseous structures are intact. SONIA FIGUEROA Apr 23, 2017 12:15
[2017-04-23 20:18] VITALS: BP 107/61; RESP 18
[2017-04-23] MEDS: CEFTRIAXONE 1 GM/50 ML (PMX) 50 ML IVPB SCH (20:34)
[2017-04-24] MEDS: PANTOPRAZOLE (EC) 40 MG TAB PO SCH (05:40)
[2017-04-24] MEDS: FUROSEMIDE 40 MG INJ IV SCH (05:40)
[2017-04-24 08:16] VITALS: BP 122/57; RESP 18
[2017-04-24] MEDS: FOLIC ACID 1 MG TAB PO SCH (08:20)
[2017-04-24] MEDS: THIAMINE 100 MG TAB PO SCH (08:20)
[2017-04-24] MEDS: SPIRONOLACTONE 50 MG TAB PO SCH (08:20)
--- NOTE | 2017-04-24 11:24 | PDOCDIS ---
Discharge Instructions DIAGNOSIS Discharge Diagnosis ascites CONDITION Patient Condition: Stable HOME CARE INSTRUCTIONS: Special Diet: 2 g Na ACTIVITY: Activity Restrictions: Slowly Increase Activity Do not Drive FOLLOW UP/APPOINTMENTS Follow-up Plan PCP 1wk Dr Jasiel Cervantes (GI) - 1week Alcoholics Anonymous referral recommended BERNARD MIDDLETON MD Apr 24, 2017 11:23
[2017-04-24] MEDS ORDERED: FURO40TA4 PO (11:25)
[2017-04-24] MEDS ORDERED: FOLI-49 PO (11:25)
[2017-04-24] MEDS ORDERED: PANT40TA4 PO (11:25)
[2017-04-24] MEDS ORDERED: Thiamine PO (11:25)
[2017-04-24] MEDS ORDERED: SPIR50TA PO (11:25)
--- NOTE | 2017-04-24 11:26 | CONS ---
Date/Time of Note Date/Time of Note DATE: 04/24/17 TIME: 11:25 Assessment/Plan Assessment/Plan Chief Complaint/Hosp Course Impression: 1. macrocytic anemia: occult blood negative. 2. likely new dx of cirrhosis, likely secondary to EtOH but need to r/o viral hepatitis 3. ascites, no SBP on ascites cell count. Recommendations: 1. EGD offered to patient but pt declined any procedures citing he has no insurance 2. protonix 40 mg po bid 3. thiamine and folic acid 4. transfuse PRN hgb < 8 5. diuretics with aldactone and lasix for his ascites. 6. ok from GI perspective to dc if ok with primary and other consultants. Problems: Consultation Date/Type/Reason Admit Date/Time Apr 21, 2017 at 17:52 Initial Consult Date 04/22/17 Type of Consultation: GI 24 HR Interval Summary Free Text/Dictation afebrile, no leukocytosis. denies any shortness of breath, abdominal pain, Constitutional: improved Exam/Review of Systems Vital Signs Vitals Vital Signs Date Time Temp Pulse Resp B/P Pulse Ox O2 Delivery O2 Flow Rate FiO2 04/24/17 08:16 97.7 99 18 122/57 100 Intake and Output 04/23/17 04/23/17 04/24/17 15:00 23:00 07:00 Intake Total 850 ml 600 ml Balance 850 ml 600 ml Exam Head: atraumatic, normocephalic Eyes: EOMI, nl conjunctiva, nl lids, nl sclera ENMT: mucosa pink and moist, nl external ears & nose, nl lips & teeth, nl nasal mucosa & septum Neck: non-tender, supple Respiratory: clear to auscultation, normal air movement Cardiovascular: nl pulses, regular rate and rhythm Gastrointestinal: bowel sounds, non-tender, soft Results Result Diagram: 04/23/17 0502 04/23/17 0502 Medications Medications Current Medications Ondansetron HCl (Zofran Inj) 4 mg Q6H PRN IV NAUSEA AND/OR VOMITING; Start 04/21 at 20:00 Ondansetron HCl (Zofran Inj) 4 mg Q6H PRN IV NAUSEA AND/OR VOMITING; Start 04/21 at 20:30 Acetaminophen (Tylenol Tab) 650 mg Q6H PRN PO PAIN AND OR ELEVATED TEMP; Start 04/21/17 at 20:30 Thiamine HCl (Vitamin B1) 100 mg DAILY PO Last administered on 04/24/17 08:20; Admin Dose 100 MG; Start 04/21/17 at 20:30; Stop 04/24/17 at 20:29 Folic Acid (Folic Acid) 1 mg DAILY PO Last administered on 04/24/17 08:20; Admin Dose 1 MG; Start 04/21/17 at 20:30 Pantoprazole (Protonix Tab) 40 mg BID@18 PO Last administered on 04/24/17 05 :40; Admin Dose 40 MG; Start 04/22/17 at 06:00 Spironolactone (Aldactone) 50 mg DAILY PO Last administered on 04/24/17 08:20; Admin Dose 50 MG; Start 04/21/17 at 21:00 Furosemide (Lasix) 40 mg DAILY PO ; Start 04/25/17 at 09:00 EPI SCHMITZ MD Apr 24, 2017 11:26
--- NOTE | 2017-04-24 14:04 | CONS ---
Date/Time of Note Date/Time of Note DATE: 04/24/17 TIME: 14:03 Assessment/Plan Assessment/Plan Chief Complaint/Hosp Course 1. SIRS vs. Sepsis 2. Ascites 3. Cirrhosis 4. 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 R: 1 Monitor off abx Problems: Consultation Date/Type/Reason Admit Date/Time Apr 21, 2017 at 17:52 Initial Consult Date 04/22/17 Type of Consultation: id Exam/Review of Systems Vital Signs Vitals Vital Signs Date Time Temp Pulse Resp B/P Pulse Ox O2 Delivery O2 Flow Rate FiO2 04/24/17 08:16 97.7 99 18 122/57 100 Intake and Output 04/23/17 04/23/17 04/24/17 15:00 23:00 07:00 Intake Total 850 ml 600 ml Balance 850 ml 600 ml Results Result Diagram: 04/23/17 0502 04/23/17 0502 Medications Medications Current Medications Ondansetron HCl (Zofran Inj) 4 mg Q6H PRN IV NAUSEA AND/OR VOMITING; Start 04/21 at 20:00 Ondansetron HCl (Zofran Inj) 4 mg Q6H PRN IV NAUSEA AND/OR VOMITING; Start 04/21 at 20:30 Acetaminophen (Tylenol Tab) 650 mg Q6H PRN PO PAIN AND OR ELEVATED TEMP; Start 04/21/17 at 20:30 Thiamine HCl (Vitamin B1) 100 mg DAILY PO Last administered on 04/24/17 08:20; Admin Dose 100 MG; Start 04/21/17 at 20:30; Stop 04/24/17 at 20:29 Folic Acid (Folic Acid) 1 mg DAILY PO Last administered on 04/24/17 08:20; Admin Dose 1 MG; Start 04/21/17 at 20:30 Pantoprazole (Protonix Tab) 40 mg BID@06,18 PO Last administered on 04/24/17 05 :40; Admin Dose 40 MG; Start 04/22/17 at 06:00 Spironolactone (Aldactone) 50 mg DAILY PO Last administered on 04/24/17 08:20; Admin Dose 50 MG; Start 04/21/17 at 21:00 Furosemide (Lasix) 40 mg DAILY PO ; Start 04/25/17 at 09:00 RODGER JOHNSON MD Apr 24, 2017 14:03
--- NOTE | 2017-04-24 14:32 | DS ---
Date/Time of Note Date/Time of Note DATE: 04/24/17 TIME: 14:29 Discharge Summary Admission/Discharge Info Admit Date/Time Apr 21, 2017 at 17:52 Discharge Date/Time 04/24/17 Discharge Diagnosis ascites Patient Condition: Stable Hx of Present Illness late charting 04/21/2017 at 2100 Chief Complaint abdominal pain and distention HPI Patient is a 56-year-old male with no medical problems is admitted with c/o abdominal pain and swelling from past 3 weeks. Per patient he never had any paracentesis before. Today, patient had paracentesis and 6.8 L fluid removed.He denies any SOB, fevers, abdominal pain. nausea/vomitting/diarrhea The patient said that he tried taking Tylenol 2 times per day but ineffective. He was drinking a half a bottle of vodka daily until he stopped drinking 3 months ago. His primary doctor is Dr. Martin. Patient is admitted under Dr Saldivar for further evaluation and treatment. Hospital Course 56-year-old gentleman admitted with abdominal pain found to have ascites. Underwent 6 L paracentesis. No evidence of SBP. No evidence of decompensation due to GI bleed or hypovolemia. Patient quit alcohol last month I believe. Seen by GI, offered EGD. Patient refused. Advised to reconsider this down the line. Imaging concerning for cirrhosis. Hepatitis panel negative. Will need to follow-up with GI. We started the patient on diuretics and thiamine etc. May need to visit Alcoholics Anonymous as needed. Discharge plan Home follow-up primary [address] Jaswant Torres 1-2 weeks Diet regular Activity no driving DME none CODE STATUS full Condition stable Allergies none Barriers to discharge none Pending tests none Function status patient awake alert agrees plan of care Reason for admission ascites New medications: Thiamine 100 daily Folic acid 1 mg daily Lasix 40 once daily a.m. Spironolactone 50 once daily a.m. Protonic's or omeprazole once daily Home Meds Active Scripts [Thiamine] 100 MG TAB No Conflict Check, 100 MG PO DAILY for 30 Days, #30 Prov:BERNARD MIDDLETON MD 04/24/17 Folic Acid* (Folic Acid*) 1 Mg Tablet, 1 MG PO DAILY for 30 Days, #30 TAB Prov:BERNARD MIDDLETON MD 04/24/17 Pantoprazole* (Pantoprazole*) 40 Mg Tablet.dr, 40 MG PO BID@06,18 for 30 Days, # 30 1 Refill ok for OTC prilosec instead Prov:BERNARD MIDDLETON MD 04/24/17 Furosemide* (Furosemide*) 40 Mg Tablet, 40 MG PO DAILY for 30 Days, #30 TAB Prov:BERNARD MIDDLETON MD 04/24/17 Spironolactone* (Aldactone*) 50 Mg Tablet, 50 MG PO DAILY for 30 Days, #30 TAB Prov:BERNARD MIDDLETON MD 04/24/17 Discontinued Scripts Folic Acid* (Folic Acid*) 1 Mg Tab, 1 MG PO DAILY for 7 Days, TAB Prov:RASTA MIMS 03/01/16 Rifaximin* (Xifaxan*) 200 Mg Tab, 200 MG PO BID for 30 Days, TAB Prov:RASTA MIMS 03/01/16 [Lactulose] 20 GM/30 ML SOLN No Conflict Check, 30 GM PO DAILY Prov:RASTA MIMS 03/01/16 Primary Care Provider Care Physician No Primary BERNARD MIDDLETON MD Apr 24, 2017 14:32
[2017-04-25] MEDS ORDERED: FUROSEMIDE 40 MG TAB PO SCH (09:00)
== END 2017-04-24 14:39 | disposition home or self-care (01) | DRG 433 ==
LOC: E/R 16:36 → PP2 17:52
PROVIDERS: ADMIT Family Medicine; ATTEND Family Medicine
PROC: 0W9G30Z Drainage of Peritoneal Cavity with Drainage Device, Percutaneous Approach (ICD-10-PCS; principal; 2017-04-21)
DX: K74.60 Unspecified cirrhosis of liver (principal); R65.10 Systemic inflammatory response syndrome (SIRS) of non-infectious origin without acute organ dysfunction; R18.8 Other ascites; F10.10 Alcohol abuse, uncomplicated; D53.9 Nutritional anemia, unspecified
CPT/HCPCS: 36415; 71010; 74176; 80048; 80053; 80306; 81003; 82040; 82042; 82140; 82150; 82270; 82945; 83605; 83615; 83690; 84145; 84157; 85025; 85610; 85651; 85730; 86703; 86704; 86709; 86803; 87040; 87070; 87075; 87081; 87102; 87116; 87340; 87400; 88104; 88305; 88313; 89050; J0696; J1940; J2270; J2405

== ENCOUNTER 2017-10-26 15:29 | Inpatient (IN) | END 2017-11-10 17:23 | disposition EXP | DRG 432 ==